=== PATIENT | male | born 1970 | race Caucasian/White ===

== ENCOUNTER → 2018-10-02 16:23 | Outpatient (CLI) | payer OTHER, SELFPAY ==
--- NOTE | 2018-10-02 16:25 | DI.RAD.S_ITS ---
PROCEDURE: XR FINGER LT MIN 2V INDICATIONS: PAIN 3RD DIGIT TECHNIQUE: AP hand, 2 views of the left finger(s) acquired. COMPARISON: None. FINDINGS: Bones: No fractures or dislocations. No suspicious bony lesions. Soft tissues: No suspicious soft tissue calcifications. IMPRESSION: No fracture Dictated by: Gomez Mayer M.D. on 10/02/2018 at 16:56 Approved by: Gomez Mayer M.D. on 10/02/2018 at 16:58
== END ==
PROVIDERS: Family Provider Family Medicine; PCP Family Medicine; Visit Provider Family Medicine
DX: M79.645 Pain in left finger(s) (principal)
CPT/HCPCS: 73140

== ENCOUNTER → 2018-10-15 11:40 | Outpatient (CLI) | payer OTHER, SELFPAY ==
[2018-10-15 13:09] LABS: Influenza A and B by PCR Rapid Negative (Negative)
== END ==
PROVIDERS: Family Provider Family Medicine; PCP Family Medicine; Visit Provider Physician Assistant
DX: R68.89 Other general symptoms and signs (principal)
CPT/HCPCS: 87400

== ENCOUNTER → 2019-01-25 13:12 | Outpatient (CLI) | payer OTHER, SELFPAY ==
--- NOTE | 2019-01-25 | DI.RAD.S_ITS ---
PROCEDURE: XR FOOT RT MIN 3V INDICATIONS: RIGHT FOOT PAIN TECHNIQUE: 3 views of the foot were acquired. COMPARISON: None. FINDINGS: Bones: No fractures or dislocations. No suspicious bony lesions. Soft tissues: Surface skin marker is placed over dorsal aspect of the fifth metatarsal base. No obvious soft tissue mass is identified. No tibiotalar joint effusion. Achilles tendon appears normal. IMPRESSION: Unremarkable radiographic examination of right foot. Dictated by: Todd Whitt M.D. on 01/25/2019 at 13:19 Approved by: Todd Whitt M.D. on 01/25/2019 at 13:20
== END ==
PROVIDERS: Family Provider Family Medicine; PCP Family Medicine; Visit Provider Family Medicine
DX: M79.671 Pain in right foot (principal)
CPT/HCPCS: 73630

== ENCOUNTER → 2019-07-06 09:56 | Outpatient (CLI) | payer OTHER, SELFPAY ==
--- NOTE | 2019-07-06 | DI.RAD.S_ITS ---
PROCEDURE: XR CHEST 2V INDICATIONS: HYPERTENSION TECHNIQUE: 2 views of the chest were acquired. COMPARISON: None. FINDINGS: Surgical changes and devices: None. Lungs and pleura: Lungs are clear. No pleural effusions or pneumothorax. Mediastinum: Mediastinal contours are normal. Heart size is normal. Bones and chest wall: No suspicious bony abnormalities. Soft tissues appear unremarkable. IMPRESSION: No acute disease Dictated by: Gomez Mayer M.D. on 07/06/2019 at 14:38 Approved by: Gomez Mayer M.D. on 07/06/2019 at 14:39
== END ==
PROVIDERS: PCP Family Medicine; Visit Provider Family Medicine
DX: I10 Essential (primary) hypertension (principal)
CPT/HCPCS: 71046

== ENCOUNTER → 2020-03-24 09:46 | Outpatient (CLI) | payer OTHER, SELFPAY ==
[2020-03-26 06:11] LABS: COVID19 Sendout Not Detected (Not Detect)
== END ==
PROVIDERS: PCP Family Medicine; Visit Provider Physician Assistant
DX: Z11.59 Encounter for screening for other viral diseases (principal)
CPT/HCPCS: 87635

== ENCOUNTER 2020-03-26 07:43 | Day surgery (SDC) | payer OTHER, SELFPAY ==
[2020-03-24 10:24] VITALS: BMI 25.1
--- NOTE | 2020-03-26 | PATH_ITS ---
[facility] Accession Number: [id number] . 01 Material submitted: . shoulder - LEFT SHOULDER LIPOMA . 01 Clinical history: . EXCISION LEFT SHOULDER MASS . 01 Diagnosis: Soft Tissue, Left Shoulder, Excision: Lipoma with degenerative changes. [facility] 03/28/2020 1232 Local . 01 Electronically signed: . Shy Kent MD, Pathologist NPI- [id number] . 01 Gross description: . Received in formalin, labeled with the patient's name, MRN and left shoulder lipoma, is a 4.5 x 2.5 x 1.0 cm yellow-pastor thinly encapsulated mass. The external surface is inked blue. The specimen is serially sectioned to reveal a yellow-pastor lobulated cut surface, and no abnormalities are identified. Radio Operator Ground sections are submitted in cassettes A1-A2. ([id number]) /[facility] 03/27/2020 1422 Local . 01 Pathologist provided ICD-10: D17.9 . 01 CPT . 919327 Performed at: [address] [facility] [address], [place], [place] [id number] MD Srinivasa Meneses MD Phone: [phone]
[2020-03-26 08:06] VITALS: BMI 25.1
[2020-03-26 08:11] VITALS: BP 156/94; PULSE 88; RESP 15; TEMP 36.9; O2SAT 98
[2020-03-26] MEDS: LACTATED RINGERS 1,000 ML 100 ML IV (08:18)
--- NOTE | 2020-03-26 08:40 | PM.HP.1 ---
History of Present Illness History of Present Illness Date Patient Seen: 03/26/20 Time Patient Seen: 08:41 Chief complaint: EXCISION LEFT SHOULDER MASS Narrative: This is a 49-year-old man who has soft tissue mass on his left shoulder which has been enlarging, and causing him increased pain and discomfort down his arm. He denies any other similar lesions. He notices it causes him pain and limitation during work. 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 It has not broken open, bled, or drained any fluid. ROS: Thirteen system review is otherwise negative other than as mentioned below and in HPI. PE: GENERAL: Well groomed and cooperative. Appears stated age. Answers questions promptly and appropriately. Vital signs noted. HENT: Normocephalic, atraumatic. Hearing intact. Oral mucosa is pink and moist. EYES: Conjunctiva pink, sclera white, no periorbital swelling. CARDIOVASCULAR: Regular rate. No pedal edema. RESPIRATORY: Non-tachypneic, breathing comfortably on room air. GASTROINTESTINAL: Abdomen soft and non-distended GENITALURINARY: No flank tenderness. MUSCULOSKELETAL: Equal tone and mass bilaterally. Left shoulder with 3 cm x 3 cm soft, partially mobile mass right at the insertion of the deltoid muscle onto the acromion process SKIN: Warm, dry, soft, appropriate color for ethnicity. No other lesions, rashes, or wounds. NEURO: Alert and Oriented X 3. No gross sensory deficits, or cognitive issues. PSYCH: Appropriate affect and mood. Patient History Medical History Arthritis (Acute) Hiatal hernia (Acute) HLD (hyperlipidemia) (Acute) HTN (hypertension) (Acute) Hyperthyroidism (Acute) Hypothyroid (Acute) Sleep apnea (Acute) Surgical History History of repair of anterior cruciate ligament of left knee (Acute 2004) Hx of hernia repair (Acute) Hx of left knee surgery (Acute 2000) Hx of oral surgery (Acute) Hx of right inguinal hernia repair (Acute 2004) Hx of right knee surgery (Acute 1990) Hx of right knee surgery (Acute 2007) Family & Social History Family History Father Gallstones Grandfather Lung cancer Social History: household members spouse,children Tobacco & Substance use: Tobacco type cigarettes Smoking Status Current every day smoker alcohol intake current alcohol intake frequency 0-2 drinks per day Substance Use Type does not use Meds Home Medications and Allergies Home Medications Medication Instructions Recorded Confirmed Type levothyroxine 125 mcg capsule 125 mcg PO DAILY 11/08/18 03/26/20 History valacyclovir 500 mg tablet 500 mg PO DAILY 11/08/18 03/26/20 History magnesium 250 mg tablet 500 mg PO DAILY tab 01/24/20 03/26/20 History multivitamin 1 cap PO DAILY 01/24/20 03/26/20 History vitamin B complex 1 cap PO DAILY 01/24/20 03/26/20 History doxylamine succinate 25 mg PO BEDTIME 03/24/20 03/26/20 History fenofibrate nanocrystallized 48 mg PO DAILY 03/24/20 03/26/20 History [Tricor] lisinopril 20 mg PO DAILY 03/24/20 03/26/20 History omeprazole 40 mg PO DAILY 03/24/20 03/26/20 History Allergies Allergy/AdvReac Type Severity Reaction Status Date / Time latex Allergy Intermediate Reaction Verified 03/26/20 08:04 not listed bee venom protein (honey bee) Allergy Swelling Verified 03/26/20 08:04 large localized peanut Allergy Hives in Verified 03/26/20 08:04 throat, stomach pain Exam Vital Signs (past 8 hours): - 03/26/20 08:11 Temperature 98.5 F Pulse Rate 88 Respiratory Rate 15 Blood Pressure 156/94 H Pulse Oximetry 98 Oxygen Delivery Method Room Air Assessment & Plan Assessment & Plan narrative: This is a 49-year-old man with a left shoulder mass, which is soft and partially mobile. It causes him a significant amount of pain and paresthesias. It interferes with his work and activities of daily living. Risks and benefits of surgical excision were discussed. Risks and benefits of left shoulder mass removal were discussed including risk of bleeding, infection, damage to nearby structures, need for additional procedures, recurrence of the mass, scarring, pain and restricted movement due to scarring. I have explained to him that it is likely benign, but we will not know that until it is removed. Given that it is causing him significant pain and discomfort, and we do not know with certainty the malignant potential, he would like to have it removed. The patient desires to proceed with excision of this mass. Plan: Proceed to OR for excision of left shoulder mass COVID-19 COVID-19 status: Negative Result date/Date tested (Pos, Neg/Pending): 03/24/20 Time Spent With Patient Time with patient: 15-24 minutes Quality VTE Deep Vein Thrombosis/Pulmonary Embolism Present on Admission: No
[2020-03-26] MEDS: CEFAZOLIN 2 GM/100 ML FROZ.PIGGY IV (08:42)
--- NOTE | 2020-03-26 09:00 | SUR.OPER ---
Lateral on padded OR bed, head on pillow, gel axillary roll in place, bottom leg bent with gel pad under knee to foot, upper leg straight and supported with pillows. Upper arm supported by pillows and secured over bottom arm to padded arm board. Safety belt at hip, tape over blanket lower legs.
[2020-03-26] MEDS: BUPIVACAINE 0.25% W/ EPI 30 ML VIAL INJ (09:08)
[2020-03-26 09:17] VITALS: BP 124/62; PULSE 83; RESP 13; TEMP 36.3; O2SAT 95
--- NOTE | 2020-03-26 09:19 | P.OP_ITS ---
Operative Date/Time/Diagnoses Date of procedure: 03/26/20 Time of procedure: 09:19 Pre-op diagnosis: Left shoulder lipoma Post-op diagnosis: same Procedure & Clinicians Procedure: Excision of left shoulder lipoma Same procedure as scheduled: Yes Indications: Left shoulder mass, pain, parasthesias, uncertain malignant potential. Surgeon: Martha Hyatt Click Yes if Unassisted: Yes Anesthesia Type: General Operative Notes Findings: 2cm x 3cm fatty mass consistent with lipoma Closure Type: primary Specimen(s): other (left shoulder mass) Estimated Blood Loss (mL): 1 Blood products transfused: none Procedure in detail: The patient was brought into the OR, and identified. Sequential compression devices were placed on both legs and turned on. General anesthesia was induced and the patient was intubated with an LMA. The patient was placed in right la teral decubitus position on the operating room table. A beanbag was used to position the patient and all bony prominences were padded. The patient's left shoulder was prepped and draped in the usual sterile fashion surrounding the area of concern. Appropriate preoperative antibiotics were given. Surgical timeout was conducted. 0.25% Marcaine with epi was used to infiltrate the skin overlying the palpable fatty mass. An 4cm oblique incision was made in the skin overlying the palpable abnormality. Dissection was carried down through the dermis and subcutaneous fat until the fatty mass was encountered. An encapsulated fatty mass of about 3cm x 2cm was found. Dissection was carried around the palpable abnormality. A 3cm x 2cm x 2cm fatty mass was excised and passed off the field for pathology. Hemostasis was achieved in the operative field using cautery, and another 10mL of local anesthetic was used to infiltrate the skin and subcutaneous tissue. The skin was then closed with 3-0 Vicryl and 4-0 Monocryl, and the skin incision was sealed with Dermabond. This concluded the procedure and the patient was awakened from anesthesia and transferred to the postanesthesia care unit in stable condition. Needle sponge and instrument counts were correct x2 at the end of the case. The patient tolerated the procedure well and was transferred to the PACU in stable condition. Complications: none Post-operative Condition: stable Disposition: PACU
[2020-03-26 09:22] VITALS: BP 115/71; PULSE 81; RESP 12; TEMP 36.2; O2SAT 95
[2020-03-26 09:28] VITALS: BP 137/85; PULSE 84; RESP 11; TEMP 36.2; O2SAT 97
[2020-03-26 09:32] VITALS: BP 133/91; PULSE 78; RESP 14; TEMP 36.3; O2SAT 96
[2020-03-26 09:47] VITALS: BP 135/91; PULSE 79; RESP 16; TEMP 36.3; O2SAT 98
== END 2020-03-26 09:51 | disposition home or self-care (01) ==
PROVIDERS: PCP Family Medicine; Referring Provider Family Medicine; Visit Provider Surgery
PROC: (CPT 23071; principal; 2020-03-26 08:45)
DX: D17.22 Benign lipomatous neoplasm of skin and subcutaneous tissue of left arm (principal); G47.33 Obstructive sleep apnea (adult) (pediatric); I10 Essential (primary) hypertension; E78.5 Hyperlipidemia, unspecified; F17.210 Nicotine dependence, cigarettes, uncomplicated
CPT/HCPCS: 23071; J0690; J1100; J2405; J2704; J3010

== ENCOUNTER → 2020-08-21 09:58 | Outpatient (CLI) | payer OTHER, SELFPAY ==
--- NOTE | 2020-08-21 10:04 | DIET.PN ---
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 Pts father has IBS/UC and his mom has IBS of some type. Father is allergic to beans and many nuts including peanuts. pt does see undigested food in stool (lettuce if eating with something else that bothers him), currently avoiding most beans and too many high fiber foods at one time. Pt gets gassy with plums, cherries, too many cashews, figs, dates. Urgency is usually after breakfast or lunch, but not dinner. Is experimenting with blood type diet B- (+ oliveros, venison, no beans, no gluten...) Pt has colonoscopy in 1w, just had blood work and stool sample. Pt often eats vegetarian, likes Sammarinese and Hungarian Usual Day: Breakfast Weekdays- 2 slices thin sliced ww bread c butter and almond butter and banana and green tea used to do 16oz smoothie c soymilk, yogurt, frozen fruit but would have fecal urgency w/in 10minutes Weekends Breakfast- instant grits c fresh eggs and a little cheese or GF cottage cheese pancakes Lunch- salad and microwave burrito, leftovers Afternoon Snack- dried apples, plantain chips, 10 almonds, popcorn Dinners- GF pasta dishes, chicken and grass-fed beef, fish tacos or shrimp tacos, salads-seem to tolerate fine Other factors that may contribute to GI sx: Stress Level 2-3/10-low no coffee because is a trigger for sx no sugar alcohol intake, avoids most processed foods etoh- 3-4 super light beers (rice based vs wheat/barley) a couple shots whiskey Fri and Sat, sometimes goes all week without, sometimes nightly had food poisoning once in [place] almost 30y ago, and once 15y ago off of IPextreme sandwiches tries to eat slowly and fully chew foods takes 500mg magnesium every morning for migraines HT: 5'9 WT: 170# UBW: 165#, has gained some from [employer]: outside source Nutrition Diagnosis: unspecified fiber intolerance r/t chronic diarrhea and fecal urgency aeb pt experiences D/urgency with intake of high fiber foods (beans, berries, fruit, some nuts), pt has fear of not being able to perform job duties because of sx, pt has family hx of IBS (mom and dad). Interventions: 1. Discussed role of magnesium supplementation and etoh intake on IBS sx. Both of these are going to increase likelihood of loose stools and etoh use creates unfavorable conditions for enterocytes and colonocytes. Recc pt check c PCP on mag supp, pt eats high magnesium foods (10 almonds/d and uzbek chard). Encourage pt to limit etoh consumption for intestinal health. 2. Introduced pt to FODMAP foods. Provided handout with list of high/moderate/and low-fodmap foods. Pt identifies several high fructose and high fructan foods which he does not tolerate (plum, fig, date, cherries, cashews, beans, excessive nuts, wheat). Encouraged pt to use the list over the next several weeks to identify further foods which may cause issues and amounts which cause sx. Monitoring/Evaluations: f/u in a few weeks to assess progress and continue to work on appropriate diet, cover HLD dietary reccs considering pt not able to tolerate high fiber diet
== END ==
PROVIDERS: PCP Family Medicine; Referring Provider Family Medicine; Visit Provider Family Medicine
DX: K52.9 Noninfective gastroenteritis and colitis, unspecified (principal); R15.2 Fecal urgency
CPT/HCPCS: 97802

== ENCOUNTER → 2020-08-30 09:26 | Outpatient (CLI) | payer OTHER, SELFPAY ==
[2020-08-30 12:38] LABS: COVID19 -Nasal RAPID Negative (Negative)
== END ==
PROVIDERS: PCP Family Medicine; Visit Provider Nurse Practitioner
DX: Z01.812 Encounter for preprocedural laboratory examination (principal); Z20.822 Contact with and (suspected) exposure to COVID-19
CPT/HCPCS: 87635

== ENCOUNTER → 2020-11-26 14:55 | Outpatient (CLI) | payer OTHER, SELFPAY ==
--- NOTE | 2020-11-26 15:06 | DIET.PN ---
Dietary Progress Note Nutrition f/u for 50y M regarding diet to manage GI distress. Pt had colonoscopy which appears normal however his GI doc believes he has bile acid diarrhea which is not tested in the [place] and started pt on colesevelam 625mg tablets takes 2 before lunch and 2 before dinner. While pt was skeptical, he has sx which are resolved and no longer having watery diarrhea. Pt used low FODMAP guide to keep food record for several weeks and found the follow foods certainly bother him: beans/lentils, raw onions or raw garlic, non-organic gluten, liquid dairy, yogurt, (eats cheese and some milk in tea) Pt avoids ultraprocessed foods and fast food. Pt notices a few times he eats a food and it is fine but eats it again in a larger portion (ie enchilada c 2c Danish rice) and has some bloating and diarrhea. 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 Interventions: 1. Discussed low FODMAP diet as temporary diet to learn which foods actually cause sx with the goal of liberalizing diet as much as possible to avoid being on a restrictive diet for the longterm. Pt and family use a three ring binder for recipes. Discussed moving recipes which cause him issue to the back of the binder so family can make those dishes when he is away from home. Discussed finding new, low-FODMAP recipes to start filling the recipe book with. 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 2. Discussed the Hunger Scale for an intuitive tool to help with meal and snack quantity and spacing. Pt mentioned he gets too hungry which leads him to overeat and have sx. Discussed importance of eating at a 3 and stopping at an 8. Pt will work to increase the volume of his breakfast, eat a good lunch, and have two mini meals (one around 4pm and one around 7pm) to try to better honor his hunger and fullness which will also lead to fewer break through sx. RD will call pt in 2w when food plan is ready.
== END ==
PROVIDERS: PCP Family Medicine; Referring Provider Family Medicine; Visit Provider Family Medicine
DX: K58.9 Irritable bowel syndrome, unspecified (principal)
CPT/HCPCS: 97803

== ENCOUNTER → 2022-01-02 07:52 | Outpatient (CLI) | payer OTHER, SELFPAY ==
[2022-01-02 09:10] LABS: Alanine Aminotransferase 33 IU/L (<50); Albumin 4.5 g/dL (3.5-5.0); Albumin Globulin Ratio 1.5 (1.0-2.8); Alkaline Phosphatase 52 U/L (38-126); Aspartate Aminotransferase 35 IU/L (17-59); BUN Creatinine Ratio 11.2 (6-22); Bilirubin Total 0.5 mg/dL (0.2-1.3); Blood Urea Nitrogen 13 mg/dL (9-20); Calcium 9.2 mg/dL (8.4-10.2); Carbon Dioxide 28 mmol/L (22-32); Chloride 108 mmol/L (98-107); Cholesterol 204 mg/dL (140-199); Estimated Glomerular Filt Rate > 60 mL/min (>60); Globulin 3.1 g/dL (1.7-4.1); Glucose 95 mg/dL (70-100); HDL Cholesterol 34 mg/dL (40-60); HEMOLYSIS < 15 (0-50); LDL Cholesterol Calculated 123 mg/dL (<100); Potassium 4.2 mmol/L (3.4-5.1); Sodium 144 mmol/L (137-145); Total Protein 7.6 g/dL (6.3-8.2); Triglycerides 234 mg/dL (35-150)
[2022-01-02 09:21] LABS: LDL Cholesterol Direct 116 mg/dL (<100)
[2022-01-02 09:39] LABS: Thyroid Stimulating Hormone 1.55 uIU/mL (0.47-4.68)
== END ==
PROVIDERS: PCP Family Medicine; Referring Provider Family Medicine; Visit Provider Family Medicine
DX: E03.9 Hypothyroidism, unspecified (principal); E78.1 Pure hyperglyceridemia
CPT/HCPCS: 36415; 80053; 80061; 83721; 84443

== ENCOUNTER → 2022-02-19 13:34 | Outpatient (CLI) | payer OTHER, SELFPAY ==
--- NOTE | 2022-02-19 | DI.RAD.S_ITS ---
PROCEDURE: [place] SHOULDER INJECTION MR/CT RT INDICATIONS: disorder of synovium and tendon, right shoulder COMPARISON: None. TECHNIQUE: The indications, alternatives, benefits, risks, and complications of the procedure were explained to the patient. Written informed consent was obtained and placed in the chart. The shoulder was examined fluoroscopically and a site for needle placement chosen for entry into the glenohumeral joint from an anterior approach. The skin was prepped and draped in a sterile fashion, and 1% lidocaine infiltrated from skin down to joint capsule. A spinal needle was inserted into the glenohumeral joint, and a small amount of iodinated contrast media injected to confirm intra-articular placement of the needle tip. This was followed by approximately 12 mL dilute solution of a gadolinium containing MR contrast agent. The needle was removed and a dressing was applied. The patient was given postprocedural instructions and sent to the MR suite for MR imaging. FINDINGS: A single fluoroscopic spot image demonstrates intra-articular location of injected iodinated contrast. IMPRESSION: Successful fluoroscopically guided administration of dilute Gadolinium solution into the shoulder joint for MR arthrogram. Dictated by: Livia Perez M.D. on 02/19/2022 at 16:18 Transcribed by: MICKEY on 02/19/2022 at 16:18 Approved by: Livia Perez M.D. on 02/19/2022 at 16:41
--- NOTE | 2022-02-19 | DI.MRI.S_ITS ---
PROCEDURE: MR SHOULDER RT W CON INDICATIONS: disorder of synovium and tendon, right shoulder TECHNIQUE: After the administration of 12 mL of dilute intra-articular Gadolinium contrast, oblique coronal T1 and T2 spin echo with fat saturation, oblique sagittal T1 spin echo with and without fat saturation, oblique sagittal T2 fast spin echo with fat saturation, axial T1 spin echo with fat saturation through the shoulder. COMPARISON: [facility], MR, MR SHOULDER RIGHT WITHOUT CONTRAST, 03/30/2019, 14:58. [facility] [place], CR, XR SHOULDER 2+ VIEWS RIGHT, 09/21/2021, 9:58. [facility], , [place] SHOULDER INJECTION MR/CT RT, 02/19/2022, 14:12. FINDINGS: Image quality: Excellent. Rotator cuff: There is low-grade partial thickness articular sided tearing of the supraspinatus tendon at the critical zone approximately 1 cm from the distal insertion superimposed on mild tendinosis. The infraspinatus and teres minor tendons are intact. There is moderate subscapularis tendinosis and suspected low-grade intrasubstance and articular sided tearing. Extravasation of T1-hyperintense contrast material is seen along the margins of the supraspinatus muscle. No significant rotator cuff muscle atrophy is seen. Bones and bursae: No acute trabecular bone injury or fracture. Small chronic traction cystic changes are seen at the posterosuperior humeral head near the rotator cuff tendon insertions. Partial-thickness cartilage irregularity is seen in the central glenoid. Moderate to severe degenerative changes again seen at the acromioclavicular joint with subchondral edema and cystic changes and formation of small marginal osteophytes. A trace amount of fluid in the subacromial/subdeltoid bursa is suspected to be secondary to extravasation during the arthrogram injection versus a smaller low fusion. No intra-articular loose body is seen in the glenohumeral joint space. Capsule and soft tissues: There is nondisplaced tearing of the superior glenoid labrum. Additional nondisplaced tearing is seen at the inferior to posteroinferior labrum with focal uptake of intra-articular contrast material. No significant paralabral cyst is seen. The proximal biceps long head tendon is intact. No capsular defect is seen. IMPRESSION: 1. Focal nondisplaced tearing of the superior labrum may be new when compared to the prior MRI from 03/30/2019. There is also nondisplaced tearing of the inferior to posteroinferior labrum. 2. Low-grade partial articular surface tearing of the supraspinatus tendon at the critical zone superimposed on mild tendinosis. 3. Moderate subscapularis tendinosis with low-grade articular surface and intrasubstance tearing at the superior insertion. 4. 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 Dictated by: Louie Chaves M.D. on 02/19/2022 at 20:14 Approved by: Louie Chaves M.D. on 02/19/2022 at 20:26
== END ==
PROVIDERS: PCP Family Medicine; Referring Provider Orthopaedic Surgery; Visit Provider Orthopaedic Surgery
DX: M75.111 Incomplete rotator cuff tear or rupture of right shoulder, not specified as traumatic (principal); S43.491A Other sprain of right shoulder joint, initial encounter; M19.011 Primary osteoarthritis, right shoulder
CPT/HCPCS: 23350; 73222; 77002

== ENCOUNTER → 2022-04-28 13:37 | Outpatient (CLI) | payer OTHER, SELFPAY ==
--- NOTE | 2022-05-10 14:20 | PM.CARDMON.1 ---
Music Video Director Report Referral & Results Date Patient Seen: 04/28/22 Requesting provider: Becky Lopez Indication: Cardiac arrhythmia Duration of monitoring (days): 5 Diary information: There was 1 patient triggered event associated with sinus rhythm only Data: Minimum heart rate identified was 50 beats per minute at 04:05 on 04/30/2022 Maximum sinus heart rate was 160 beats per minute at 09:27 on 05/02/2022 Maximum overall heart rate was 222 beats per minute at 10:38 on 05/01/2022 during a run of SVT Less than 1% of identified beats were ventricular or supraventricular ectopic in origin, which would classify them as rare. There was 1 run of SVT that was 17 beats in duration with maximum heart rate of 222 beats per minute There were no pauses of 3 seconds or longer or episodes of atrial fibrillation identified on this study Impression: 4+ day gambling monitor demonstrating a single run of SVT that was very brief in duration as above
== END ==
PROVIDERS: PCP Family Medicine; Referring Provider Family Medicine; Visit Provider Family Medicine
DX: I49.9 Cardiac arrhythmia, unspecified (principal)
CPT/HCPCS: 93244; 93246

== ENCOUNTER → 2022-06-10 07:59 | Outpatient (CLI) | payer OTHER, SELFPAY ==
--- NOTE | 2022-06-10 | DI.ECHO.S_ITS ---
[facility]---------+ [facility] +---------+ : : [address] : [address] [place] : : : : [id number] : : : : Phone: [phone]+ Echocardiogram Report + + :Name: YAYO HOLLIDAY Study Date: 06/10/2022 Height: 69 in : :[facility] ReadingLocation: Weight: 177 lb : : Gender: Male BSA: 2.0 m2 : :: 1970 Age: 51 yrs BP: 144/102 mmHg: :Reason For Study: SUPRAVENTRICULAR TACHYCARDIA : :Ordering Physician: YENNI, : :BRITNEY Performed By: Jennifer Carvajal : :Referring: BRITNEY HYMAN : + + Interpretation Summary The left ventricle is normal in size and wall thickness. Left ventricular systolic function appears normal without focal wall motion abnormalities. The ejection fraction is estimated to be 60-65%. Diastolic parameters suggest probable normal left ventricular diastolic function and normal filling pressures. The right ventricle is normal in size and function. The left atrial size is normal. Right atrial size is normal. There is no significant valvular heart disease. The aortic root is normal size. Procedure: A two-dimensional transthoracic echocardiogram with color flow and Doppler was performed. The study quality was technically adequate. There is no prior echocardiogram noted for this patient. The patient was in sinus rhythm with heart rates between 75-85 bpm during the exam. Left Ventricle: The left ventricle is normal in size and wall thickness. Left ventricular systolic function appears normal without focal wall motion abnormalities. The ejection fraction is estimated to be 60-65%. Diastolic parameters suggest probable normal left ventricular diastolic function and normal filling pressures. Right Ventricle: The right ventricle is normal in size and function. Atria: The left atrial size is normal. Right atrial size is normal. There is no Doppler evidence for an interatrial shunt. Mitral Valve: The mitral valve is normal in structure and function. There is trace mitral regurgitation. Aortic Valve: The aortic valve is trileaflet. The aortic valve opens well. There is no aortic valve stenosis. No aortic regurgitation is present. Tricuspid Valve: The tricuspid valve is normal in structure and function. There is trace tricuspid regurgitation. Pulmonic Valve: The pulmonic valve leaflets are thin and pliable; valve motion is normal. There is mild pulmonic regurgitation. There is no significant valvular heart disease. Great Vessels: The aortic root is normal size. The dimensions of the ascending aorta are normal. The IVC is of normal diameter and collapses greater than 50% with a sniff. This suggests a low right atrial pressure of 3 mm Hg. Pericardium/ Pleura There is no pericardial effusion. There is no pleural effusion. MMode/2D Measurements & Calculations LVIDd: 4.7 cm LVOT diam: 2.0 cm LVIDs: 3.5 cm Ao root diam: 3.5 cm FS: 25.4 % asc Aorta Diam: 3.1 cm IVSd: 0.88 cm Ao Arch Diam (Prox Trans): 3.1 cm LVPWd: 1.0 cm LV cabezas. diameter/BSA (cm/m^2): 2.4 LV sys. diameter/BSA (cm/m^2): 1.8 LA A2 area: 17.3 cm2 RA long axis: 5.4 cm LA A4 area: 20.3 cm2 RA area: 19.0 cm2 LA length (vol): 5.8 cm RA vol: 57.6 ml LA vol: 51.2 ml RA : 29.4 ml/m2 LA vol index: 26.1 ml/m2 IVC diam: 1.1 cm RVD1 (basal): 3.2 cm RVD2 (mid): 2.9 cm TAPSE: 2.0 cm Doppler Measurements & Calculations Ao V2 max: 148.5 cm/sec LVOT Max Sekou: 100.8 cm/sec Ao V2 mean: 102.1 cm/sec LV V1 max P.1 mmHg Ao max P.8 mmHg LV V1 VTI: 20.0 cm Ao mean P.7 mmHg ALFONSO(I,D): 2.3 cm2 Ao V2 VTI: 28.4 cm ALFONSO(V,D): 2.2 cm2 sev ratio: 0.70 ALFONSO indexed to BSA (cm^2/m^2): 1.2 MV E max sekou: 73.3 cm/sec PA V2 max: 109.8 cm/sec MV A max sekou: 54.5 cm/sec PA V2 mean: 73.2 cm/sec MV E/A: 1.3 PA mean P.4 mmHg Med Peak E' Sekou: 9.5 cm/sec PA pr(Accel): 22.5 mmHg E/E' med: 7.7 Lat Peak E' Sekou: 11.8 cm/sec E/E' lat: 6.2 E/e' average: 7.0 MV dec time: 0.21 sec SV(LVOT): 64.0 ml Reading Physician:04:55 PM
== END ==
PROVIDERS: PCP Family Medicine; Referring Provider Family Medicine; Visit Provider Family Medicine
DX: I37.1 Nonrheumatic pulmonary valve insufficiency (principal); I47.1 Supraventricular tachycardia
CPT/HCPCS: 93306

== ENCOUNTER → 2022-10-16 07:46 | Outpatient (CLI) | payer OTHER, SELFPAY ==
[2022-10-16 09:08] LABS: Alanine Aminotransferase 30 IU/L (<50); Albumin 4.3 g/dL (3.5-5.0); Albumin Globulin Ratio 1.5 (1.0-2.8); Alkaline Phosphatase 45 U/L (38-126); Aspartate Aminotransferase 29 IU/L (17-59); BUN Creatinine Ratio 13.8 (6-22); Bilirubin Total 0.6 mg/dL (0.2-1.3); Blood Urea Nitrogen 15 mg/dL (9-20); Calcium 9.4 mg/dL (8.4-10.2); Carbon Dioxide 31 mmol/L (22-32); Chloride 102 mmol/L (98-107); Cholesterol 207 mg/dL (140-199); Estimated Glomerular Filt Rate > 60 mL/min (>60); Globulin 2.9 g/dL (1.7-4.1); Glucose 87 mg/dL (70-100); HDL Cholesterol 37 mg/dL (40-60); HEMOLYSIS < 15 (0-50); LDL Cholesterol Calculated 116 mg/dL (<100); Potassium 4.4 mmol/L (3.4-5.1); Sodium 139 mmol/L (137-145); Total Protein 7.2 g/dL (6.3-8.2); Triglycerides 270 mg/dL (35-150)
[2022-10-16 09:39] LABS: TSH w/ Reflex to FT4 2.72 uIU/mL (0.47-4.68)
== END ==
PROVIDERS: PCP Family Medicine; Referring Provider Family Medicine; Visit Provider Family Medicine
DX: E78.1 Pure hyperglyceridemia (principal); E03.9 Hypothyroidism, unspecified
CPT/HCPCS: 36415; 80053; 80061; 84443

== ENCOUNTER → 2022-10-23 10:47 | Outpatient (CLI) | payer OTHER, SELFPAY ==
--- NOTE | 2022-10-23 | DI.MRI.S_ITS ---
PROCEDURE: MR SHOULDER RT WO CON INDICATIONS: RIGHT SHOULDER PAIN TECHNIQUE: Noncontrast oblique coronal T2 fast spin echo with fat saturation, oblique sagittal T1 spin echo and T2 fast spin echo with fat saturation, axial T1 spin echo and T2 fast spin echo with fat saturation through the shoulder. COMPARISON: [facility], CR, XR SHOULDER 2+ VIEWS RIGHT, 09/21/2021, 9:58. [facility], MR, MR SHOULDER RIGHT WITHOUT CONTRAST, 03/30/2019, 14:58. [facility], MR, MR SHOULDER RT W CON, 02/19/2022, 14:50. FINDINGS: Image quality: Excellent. Rotator cuff: There is partial-thickness tear of the supraspinatus tendon involving both articular and bursal surfaces. There is partial-thickness tear of the infraspinatus along bursal surface. Partial-thickness tear is also seen in the subscapularis tendon along both articular and bursal surfaces. The teres minor tendon appears intact. Sagittal images demonstrate no rotator cuff muscle atrophy. Bones and bursae: No bone marrow contusions or fractures. There is moderate acromioclavicular and glenohumeral joint degeneration. The acromion demonstrates conventional anatomy, without an os acromiale. Small subacromial-subdeltoid bursal fluid is present. Capsule and soft tissues: Again noted is superior labral tear, not significant changed. Degenerative tears are also seen in the inferior and posterior labrum. The long head of the biceps tendon demonstrates normal location and morphology. The rotator interval appears normal, without fibrosis. The coracohumeral ligament is normal in thickness. IMPRESSION: 1. Partial-thickness tear of the supraspinatus, infraspinatus and subscapularis tendons. No tendon retraction or rotator cuff muscle atrophy. 2. 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 3. Labral tears involving the superior, inferior and posterior labrum. 4. Small subacromial-subdeltoid bursal fluid consistent with mild bursitis. Dictated by: Henrietta Meyers M.D. on 10/25/2022 at 9:29 Approved by: Henrietta Meyers M.D. on 10/25/2022 at 9:45
== END ==
PROVIDERS: PCP Family Medicine; Referring Provider Orthopaedic Surgery; Visit Provider Orthopaedic Surgery
DX: S46.011A Strain of muscle(s) and tendon(s) of the rotator cuff of right shoulder, initial encounter (principal); S43.431A Superior glenoid labrum lesion of right shoulder, initial encounter; M19.011 Primary osteoarthritis, right shoulder; X58.XXXA Exposure to other specified factors, initial encounter
CPT/HCPCS: 73221

== ENCOUNTER → 2024-06-28 15:14 | Outpatient (CLI) | payer OTHER, SELFPAY ==
--- NOTE | 2024-06-28 15:15 | DI.MRI.S_ITS ---
PROCEDURE: MR SHOULDER RT WO CON INDICATIONS: STRAIN OF MUSCLE AND TENDONS OR RT ROTATOR CUFF TECHNIQUE: Noncontrast oblique coronal T2 fast spin echo with fat saturation, oblique sagittal T1 spin echo and T2 fast spin echo with fat saturation, axial T1 spin echo and T2 fast spin echo with fat saturation through the shoulder. COMPARISON: [facility], MR, MR SHOULDER RT WO CON, 10/23/2022, 10:57. FINDINGS: Image quality: Excellent. Rotator cuff: There is low grade, articular sided tear at the mid footprint of the supraspinatus (08:12). The infraspinatus is unremarkable. The teres minor is unremarkable. The subscapularis is unremarkable. No muscle edema or fatty atrophy. Bones and bursae: Mild degenerative changes of the acromioclavicular joint. Type 2 acromion. No os acromiale. Trace subacromial/subdeltoid bursitis. Mild punctate subchondral cystic changes in the greater tuberosity, reactive. No focal chondral defect of the glenohumeral articulation. No acute fracture. Capsule and soft tissues: Tear of the anterior inferior labrum, the inferior labrum, and the posterior labrum. 1.3 cm paralabral cyst about the anterior inferior glenoid. 7 mm paralabral cyst about the inferior labrum. The extra-articular biceps tendon is unremarkable. The intra-articular biceps tendon is unremarkable as well. No significant glenohumeral effusion. No intra-articular body. IMPRESSION: 1. Mild degenerative changes of the acromioclavicular joint. 2. Low-grade tear of the supraspinatus, unchanged from prior exam. 3. Circumferential labral tear with interval development of 2 paralabral cysts. Dictated by: Stephanie Raza M.D. on 06/28/2024 at 15:53 Approved by: Stephanie Raza M.D. on 06/28/2024 at 16:03
== END ==
PROVIDERS: PCP Family Medicine; Referring Provider Preventive Medicine Occupational Medicine; Visit Provider Preventive Medicine Occupational Medicine
DX: S46.011A Strain of muscle(s) and tendon(s) of the rotator cuff of right shoulder, initial encounter (principal); S43.431A Superior glenoid labrum lesion of right shoulder, initial encounter; X58.XXXA Exposure to other specified factors, initial encounter
CPT/HCPCS: 73221